=== PATIENT | female | born 2000 | race African-American/Black ===

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

== ENCOUNTER → 2020-07-13 | Emergency (ER) | payer OTHER ==
[~2020-07-13] VITALS: Ht 157.5 cm; Wt 68.0 kg
[~2020-07-13] MED LIST changes: +ALBUTEROL2.5 MG/0.1 INH; +FLONASE 0.05%50 MCG NARES; +FLOVENT HFA12 G1 INH; +LEVAQUIN 750 M750 MG PO; +MUCINEX600 MG PO; +NEBULIZER MISCELL; +OMEPRAZOLE 20 M20 M1 PO; +PREDNISONE 20 M20 M1 PO; +PREDNISONE 20 M20 MG PO; +SINGULAIR 10 MG10 M1 PO; +SYMBICORT160 MCG/4. INH
[2020-07-13 10:58] VITALS: BP 131/77
== END ==
LOC: ER 10:44
DX: R10.2 Pelvic and perineal pain (principal); Z53.21 Procedure and treatment not carried out due to patient leaving prior to being seen by health care provider

== ENCOUNTER 2020-09-23 10:28 | Emergency (ER) | payer OTHER ==
[~2020-09-23] VITALS: Ht 157.5 cm; Wt 79.4 kg
[2020-09-23] MEDS ORDERED: PREDNISONE 20 M20 MG PO (11:15)
[2020-09-23] MEDS ORDERED: PROAIR HFA8.5 GM INH (11:15)
[2020-09-23 14:06] VITALS: BP 102/76
== END 2020-09-23 14:23 | disposition home or self-care (01) ==
LOC: ER 10:28
DX: J45.901 Unspecified asthma with (acute) exacerbation (principal); Z20.822 Contact with and (suspected) exposure to COVID-19; Z79.899 Other long term (current) drug therapy; Z91.018 Allergy to other foods